=== PATIENT | female | born 1965 | race Caucasian/White ===

== ENCOUNTER 2017-04-30 08:34 | Emergency (ER) | payer MEDICAID ==
[~2017-04-30] VITALS: Ht 162.6 cm; Wt 68.3 kg
[2017-04-30 08:35] VITALS: BP 169/82
[2017-04-30] MEDS ORDERED: BUPIVACAINE/PF 0.5% INFIL ONE (12:00)
[2017-04-30] MEDS ORDERED: BUPIVACAINE 0.25% ONE (12:03)
[2017-04-30] MEDS ORDERED: KETOROLAC 30 MG/1 ML IVPush ONE (13:00)
[2017-04-30] MEDS ORDERED: SUMATRIPTAN 6MG/0.5ML SQ ONE ×2 (13:00→13:06)
[2017-04-30] MEDS ORDERED: DEXAMETHASONE 10 MG in SODIUM CHLORIDE 0.9% 50 ML IV ONE (13:00)
[2017-04-30] MEDS ORDERED: SODIUM CHLORIDE 0.9% 1,000ML IVBOLUS ONE (13:00)
[2017-04-30] MEDS ORDERED: SODIUM CHLORIDE FLUSH 10ML SYR IVF ONE (13:00)
[2017-04-30] MEDS ORDERED: DIPHENHYDRAMINE 50 MG/ML, 1ML IVPush ONE (13:00)
[2017-04-30] MEDS ORDERED: DEXAMETHASONE 4 MG/ML, 1ML IVPush ONE (13:00)
[2017-04-30] MEDS ORDERED: METOCLOPRAMIDE 5 MG/ML, 2ML IVPush ONE (13:00)
[2017-04-30] MEDS ORDERED: KETOROLAC 30 MG/1 ML ONE (13:06)
[2017-04-30] MEDS ORDERED: DIPHENHYDRAMINE 50 MG/ML, 1ML ONE (13:06)
[2017-04-30] MEDS ORDERED: METOCLOPRAMIDE 5 MG/ML, 2ML ONE (13:08)
== END 2017-04-30 14:16 | disposition home or self-care (01) ==
LOC: ED 12:52
DX: G43.001 Migraine without aura, not intractable, with status migrainosus (principal)
CPT/HCPCS: 96365; 96372; 96375; 99284; J1100; J1200; J1885; J2765; J3030; J7030

== ENCOUNTER 2017-08-13 14:24 | Emergency (ER) | payer MEDICAID ==
[~2017-08-13] VITALS: Ht 162.6 cm; Wt 66.0 kg
[2017-08-13 15:23] LABS: BASOPHILS # (AUTO) 0.02 x10^3/uL (0-0.1); BASOPHILS % (AUTO) 0 % (0-1); EOSINOPHILS # (AUTO) 0.27 x10^3/uL (0-0.4); EOSINOPHILS % (AUTO) 5 % (1-7); LYMPHOCYTES # (AUTO) 1.63 x10^3/uL (1-3.4); LYMPHOCYTES % (AUTO) 29 % (22-44); MD NO; MEAN CORPUSCULAR HEMOGLOBIN 26.4 pg (27.0-34.8); MEAN CORPUSCULAR HGB CONC 32.8 g/dL (32.4-35.8); MEAN CORPUSCULAR VOLUME 80.4 fL (80-100); MEAN PLATELET VOLUME 7.9 fL (7.4-10.4); MONOCYTES # (AUTO) 0.39 x10^3/uL (0.2-0.8); MONOCYTES % (AUTO) 7 % (2-9); NEUTROPHILS # (AUTO) 3.23 x10^3/uL (1.8-6.8); NEUTROPHILS % (AUTO) 58 % (42-75); PLATELET COUNT 339 x10^3/uL (130-400); RED BLOOD COUNT 4.72 x10^6/uL (3.82-5.3); RED CELL DISTRIBUTION WIDTH 17.3 % (9.6-15.2)
[2017-08-13] MEDS ORDERED: KETOROLAC 30 MG/1 ML IVPush ONE (15:30)
[2017-08-13] MEDS ORDERED: METOCLOPRAMIDE 5 MG/ML, 2ML IVPush ONE (15:30)
[2017-08-13] MEDS ORDERED: SODIUM CHLORIDE FLUSH 10ML SYR IVF ONE (15:30)
[2017-08-13 15:34] LABS: CHLORIDE 111 mmol/L (98-107)
[2017-08-13 15:42] LABS: ALANINE AMINOTRANSFERASE 11 U/L (12-78); ALKALINE PHOSPHATASE 55 U/L (45-117); ANION GAP 8 mmol/L (5-15); BILIRUBIN,TOTAL 0.4 mg/dL (0.2-1.0); CALCIUM 8.9 mg/dL (8.5-10.1); CREATININE 0.79 mg/dL (0.55-1.02); TOTAL PROTEIN 7.3 g/dL (6.4-8.2)
[2017-08-13] MEDS ORDERED: METOCLOPRAMIDE 5 MG/ML, 2ML ONE (15:46)
[2017-08-13] MEDS ORDERED: KETOROLAC 30 MG/1 ML ONE (15:47)
[2017-08-13 16:38] VITALS: BP 132/82
== END 2017-08-13 16:43 | disposition home or self-care (01) ==
LOC: ED 16:38
DX: G44.221 Chronic tension-type headache, intractable (principal); G43.909 Migraine, unspecified, not intractable, without status migrainosus
CPT/HCPCS: 36415; 70450; 80053; 85025; 96374; 96375; 99285; J1885; J2765

== ENCOUNTER 2017-10-02 09:14 | Emergency (ER) | payer MEDICAID ==
[~2017-10-02] VITALS: Ht 162.6 cm; Wt 65.0 kg
[2017-10-02] MEDS ORDERED: KETOROLAC 30 MG/1 ML ONE (09:44)
[2017-10-02] MEDS ORDERED: PROCHLORPERAZINE 5 MG/ML, 2ML ONE (09:44)
[2017-10-02] MEDS ORDERED: DIPHENHYDRAMINE 50 MG/ML, 1ML ONE (09:44)
[2017-10-02 09:59] LABS: BASOPHILS # (AUTO) 0.04 x10^3/uL (0-0.1); BASOPHILS % (AUTO) 1 % (0-1); EOSINOPHILS # (AUTO) 0.33 x10^3/uL (0-0.4); EOSINOPHILS % (AUTO) 6 % (1-7); LYMPHOCYTES # (AUTO) 1.51 x10^3/uL (1-3.4); LYMPHOCYTES % (AUTO) 29 % (22-44); MD NO; MEAN CORPUSCULAR HEMOGLOBIN 26.1 pg (27.0-34.8); MEAN CORPUSCULAR HGB CONC 32.6 g/dL (32.4-35.8); MEAN CORPUSCULAR VOLUME 80.1 fL (80-100); MEAN PLATELET VOLUME 7.8 fL (7.4-10.4); MONOCYTES # (AUTO) 0.43 x10^3/uL (0.2-0.8); MONOCYTES % (AUTO) 8 % (2-9); NEUTROPHILS # (AUTO) 2.92 x10^3/uL (1.8-6.8); NEUTROPHILS % (AUTO) 56 % (42-75); PLATELET COUNT 345 x10^3/uL (130-400); RED BLOOD COUNT 4.71 x10^6/uL (3.82-5.3); RED CELL DISTRIBUTION WIDTH 16.6 % (9.6-15.2)
[2017-10-02] MEDS ORDERED: DIPHENHYDRAMINE 50 MG/ML, 1ML IVPush ONE (10:00)
[2017-10-02] MEDS ORDERED: PROCHLORPERAZINE 5 MG/ML, 2ML IVPush ONE (10:00)
[2017-10-02] MEDS ORDERED: KETOROLAC 30 MG/1 ML IVPush ONE (10:00)
[2017-10-02] MEDS ORDERED: SODIUM CHLORIDE 0.9% 1,000ML IVBOLUS ONE (10:00)
[2017-10-02] MEDS ORDERED: SODIUM CHLORIDE FLUSH 10ML SYR IVF ONE (10:00)
[2017-10-02 10:10] LABS: ALBUMIN 3.7 g/dL (3.4-5.0); ANION GAP 8 mmol/L (5-15); CALCIUM 8.7 mg/dL (8.5-10.1); CHLORIDE 109 mmol/L (98-107)
[2017-10-02 10:36] VITALS: BP 144/84
== END 2017-10-02 11:29 | disposition home or self-care (01) ==
LOC: ED 09:43
DX: G43.909 Migraine, unspecified, not intractable, without status migrainosus (principal)
CPT/HCPCS: 36415; 80048; 82040; 85025; 96374; 96375; 99284; J0780; J1200; J1885; J7030

== ENCOUNTER 2017-10-08 17:45 | Emergency (ER) | payer MEDICAID ==
[~2017-10-08] VITALS: Ht 162.6 cm; Wt 63.0 kg
[2017-10-08 20:31] VITALS: BP 160/97
== END 2017-10-08 20:33 | disposition home or self-care (01) ==
LOC: ED 20:10
DX: I80.8 Phlebitis and thrombophlebitis of other sites (principal)
CPT/HCPCS: 99284

== ENCOUNTER 2018-01-06 00:01 | Emergency (ER) | payer MEDICAID ==
[~2018-01-06] VITALS: Ht 162.6 cm; Wt 62.1 kg
[2018-01-06 00:04] VITALS: BP 174/92
== END 2018-01-06 00:56 | disposition home or self-care (01) ==
LOC: ED 00:53
DX: M62.830 Muscle spasm of back (principal); I10 Essential (primary) hypertension; G43.909 Migraine, unspecified, not intractable, without status migrainosus
CPT/HCPCS: 93005; 99283

== ENCOUNTER 2018-01-07 20:01 | Emergency (ER) | payer MEDICAID ==
[~2018-01-07] VITALS: Ht 162.6 cm; Wt 60.9 kg
[2018-01-07 20:38] LABS: BASOPHILS # (AUTO) 0.04 x10^3/uL (0-0.1); BASOPHILS % (AUTO) 1 % (0-1); EOSINOPHILS # (AUTO) 0.37 x10^3/uL (0-0.4); EOSINOPHILS % (AUTO) 5 % (1-7); LYMPHOCYTES # (AUTO) 2.34 x10^3/uL (1-3.4); LYMPHOCYTES % (AUTO) 31 % (22-44); MD NO; MEAN CORPUSCULAR HGB CONC 32.6 g/dL (32.4-35.8); MEAN CORPUSCULAR VOLUME 82.8 fL (80-100); MEAN PLATELET VOLUME 7.6 fL (7.4-10.4); MONOCYTES # (AUTO) 0.57 x10^3/uL (0.2-0.8); MONOCYTES % (AUTO) 7 % (2-9); NEUTROPHILS # (AUTO) 4.34 x10^3/uL (1.8-6.8); NEUTROPHILS % (AUTO) 57 % (42-75); PLATELET COUNT 319 x10^3/uL (130-400); RED BLOOD COUNT 4.67 x10^6/uL (3.82-5.3); RED CELL DISTRIBUTION WIDTH 16.2 % (9.6-15.2)
[2018-01-07 20:49] LABS: ALANINE AMINOTRANSFERASE 20 U/L (12-78); ALBUMIN 3.9 g/dL (3.4-5.0); ANION GAP 6 mmol/L (5-15); CALCIUM 8.4 mg/dL (8.5-10.1); CHLORIDE 111 mmol/L (98-107)
[2018-01-07 20:52] LABS: ALKALINE PHOSPHATASE 57 U/L (45-117); BILIRUBIN,TOTAL 0.3 mg/dL (0.2-1.0); TOTAL PROTEIN 7.2 g/dL (6.4-8.2); TROPONIN I < 0.015 ng/mL (0.000-0.045)
[2018-01-07 23:23] VITALS: BP 180/85
== END 2018-01-07 23:43 | disposition home or self-care (01) ==
LOC: ED 22:13
DX: R07.89 Other chest pain (principal); N63.0 Unspecified lump in unspecified breast; F17.210 Nicotine dependence, cigarettes, uncomplicated
CPT/HCPCS: 36415; 71045; 76642; 80053; 84484; 85025; 93005; 99285

== ENCOUNTER 2018-01-30 22:31 | Emergency (ER) | payer MEDICAID ==
[~2018-01-30] VITALS: Ht 162.6 cm; Wt 61.3 kg
[2018-01-30 23:13] LABS: BASOPHILS # (AUTO) 0.06 x10^3/uL (0-0.1); BASOPHILS % (AUTO) 1 % (0-1); EOSINOPHILS # (AUTO) 0.39 x10^3/uL (0-0.4); EOSINOPHILS % (AUTO) 5 % (1-7); LYMPHOCYTES # (AUTO) 2.33 x10^3/uL (1-3.4); LYMPHOCYTES % (AUTO) 31 % (22-44); MD NO; MEAN CORPUSCULAR HEMOGLOBIN 27.3 pg (27.0-34.8); MEAN CORPUSCULAR VOLUME 82.6 fL (80-100); MEAN PLATELET VOLUME 7.7 fL (7.4-10.4); MONOCYTES # (AUTO) 0.67 x10^3/uL (0.2-0.8); MONOCYTES % (AUTO) 9 % (2-9); NEUTROPHILS # (AUTO) 4.17 x10^3/uL (1.8-6.8); NEUTROPHILS % (AUTO) 55 % (42-75); PLATELET COUNT 373 x10^3/uL (130-400); RED BLOOD COUNT 4.53 x10^6/uL (3.82-5.3); RED CELL DISTRIBUTION WIDTH 16.7 % (9.6-15.2)
[2018-01-30 23:21] LABS: ALBUMIN 4.1 g/dL (3.4-5.0); ANION GAP 7 mmol/L (5-15); CALCIUM 8.7 mg/dL (8.5-10.1); CHLORIDE 108 mmol/L (98-107); CREATININE 0.76 mg/dL (0.55-1.02)
[2018-01-30 23:25] LABS: TROPONIN I < 0.015 ng/mL (0.000-0.045)
[2018-01-31] MEDS ORDERED: OMNIPAQUE 350 MG/ML, 100ML BOTTLE ONE (00:19)
[2018-01-31 01:50] VITALS: BP 163/78
== END 2018-01-31 01:52 | disposition home or self-care (01) ==
LOC: ED 22:54
DX: R07.89 Other chest pain (principal); I10 Essential (primary) hypertension; F17.200 Nicotine dependence, unspecified, uncomplicated
CPT/HCPCS: 36415; 71275; 80048; 82040; 84484; 85025; 93005; 99285; Q9967

== ENCOUNTER 2018-02-10 21:55 | Emergency (ER) | payer MEDICAID ==
[~2018-02-10] VITALS: Ht 162.6 cm; Wt 59.2 kg
[2018-02-10] MEDS ORDERED: NITROGLYCERIN OINT 2%, 1GM TP ONE ×2 (22:25→22:30)
[2018-02-10] MEDS ORDERED: LABETALOL 5MG/ML, 20ML IVPush ONE (22:30)
[2018-02-10] MEDS ORDERED: SODIUM CHLORIDE FLUSH 10ML SYR IVF ONE (22:30)
[2018-02-10] MEDS ORDERED: LORazepam 2 MG/ML, 1ML IVPush ONE (22:30)
[2018-02-10 22:38] LABS: BASOPHILS # (AUTO) 0.04 x10^3/uL (0-0.1); BASOPHILS % (AUTO) 1 % (0-1); EOSINOPHILS # (AUTO) 0.32 x10^3/uL (0-0.4); EOSINOPHILS % (AUTO) 4 % (1-7); LYMPHOCYTES # (AUTO) 1.92 x10^3/uL (1-3.4); LYMPHOCYTES % (AUTO) 23 % (22-44); MD NO; MEAN CORPUSCULAR HEMOGLOBIN 27.2 pg (27.0-34.8); MEAN CORPUSCULAR VOLUME 82.4 fL (80-100); MEAN PLATELET VOLUME 7.4 fL (7.4-10.4); MONOCYTES # (AUTO) 0.67 x10^3/uL (0.2-0.8); MONOCYTES % (AUTO) 8 % (2-9); NEUTROPHILS % (AUTO) 66 % (42-75); PLATELET COUNT 371 x10^3/uL (130-400); RED BLOOD COUNT 4.69 x10^6/uL (3.82-5.3); RED CELL DISTRIBUTION WIDTH 16.9 % (9.6-15.2)
[2018-02-10] MEDS ORDERED: LORazepam 2 MG/ML, 1ML ONE (22:39)
[2018-02-10 22:50] LABS: ALANINE AMINOTRANSFERASE 22 U/L (12-78); ANION GAP 9 mmol/L (5-15); CALCIUM 8.7 mg/dL (8.5-10.1); CHLORIDE 107 mmol/L (98-107); CREATININE 0.84 mg/dL (0.55-1.02); PROTHROMBIN TIME 10.6 Seconds (9.6-11.5)
[2018-02-10 22:55] LABS: ALKALINE PHOSPHATASE 58 U/L (45-117); BILIRUBIN,TOTAL 0.3 mg/dL (0.2-1.0); TOTAL PROTEIN 7.5 g/dL (6.4-8.2); TROPONIN I < 0.015 ng/mL (0.000-0.045)
[2018-02-10] MEDS ORDERED: OMNIPAQUE 350 MG/ML, 100ML BOTTLE ONE (23:11)
[2018-02-10 23:58] VITALS: BP 115/76
== END 2018-02-11 01:11 | disposition home or self-care (01) ==
LOC: ED 22:11
DX: R07.89 Other chest pain (principal); I10 Essential (primary) hypertension; F17.200 Nicotine dependence, unspecified, uncomplicated
CPT/HCPCS: 36415; 71275; 80053; 83880; 84484; 85025; 85610; 85730; 93005; 96374; 99284; J2060; Q9967

== ENCOUNTER 2018-02-23 09:02 | Day surgery (SDC) | payer MEDICAID ==
[~2018-02-23] VITALS: Ht 162.6 cm; Wt 60.0 kg
[~2018-02-23 09:02] MED LIST: BUPIVACAINE/PF-EPI 0.5% 1:200K ONE; HEPARIN 1,000 UNITS/ML, 10ML ONE
[2018-02-23] MEDS ORDERED: LACTATED RINGERS 1,000 ML IV SCH (09:29)
[2018-02-23] MEDS ORDERED: LIDOCAINE-MPF 1%, 2ML INFIL ONE (09:30)
[2018-02-23] MEDS ORDERED: PLEASE ENTER HEIGHT AND WEIGHT MC SCH (10:00)
[2018-02-23 10:07] VITALS: BP 159/93
[2018-02-23 10:29] LABS: HCG UR SG 1.012 (1.003-1.030)
[2018-02-23] MEDS ORDERED: FENTANYL PF 100 MCG/2ML ONE ×2 (10:56→12:22)
[2018-02-23] MEDS ORDERED: MIDAZOLAM 1 MG/ML, 2ML ONE (10:56)
[2018-02-23] MEDS ORDERED: DEXAMETHASONE 4 MG/ML, 1ML ONE (11:23)
[2018-02-23] MEDS ORDERED: CEFAZOLIN 1,000 MG ONE (11:23)
[2018-02-23] MEDS ORDERED: PROPOFOL 10 MG/ML, 20ML ONE (11:23)
[2018-02-23] MEDS ORDERED: ONDANSETRON 2MG/ML, 2ML ONE (11:23)
[2018-02-23] MEDS ORDERED: MEPERIDINE/PF 50 MG/ML ONE (11:57)
[2018-02-23] MEDS ORDERED: PROMETHAZINE 25 MG/ML, 1ML IV PRN (12:00)
[2018-02-23] MEDS ORDERED: ACETAMINOPHEN 325 MG TABLET PO PRN (12:00)
[2018-02-23] MEDS ORDERED: FENTANYL PF 100 MCG/2ML IV PRN (12:00)
[2018-02-23] MEDS ORDERED: LABETALOL 5MG/ML, 20ML IV PRN (12:00)
[2018-02-23] MEDS ORDERED: OXYcodone 5 MG/5 ML ORAL.SOL UDC PO PRN (12:00)
[2018-02-23] MEDS ORDERED: MEPERIDINE/PF 25MG/0.5ML IVPush PRN (12:00)
[2018-02-23] MEDS ORDERED: HYDROmorphone 2 MG/ML, 1ML IVPush PRN (12:00)
[2018-02-23] MEDS ORDERED: ALBUTEROL SULFATE 2.5 MG/3 ML NPPB PRN (12:00)
[2018-02-23] MEDS ORDERED: hydrALAzine 20 MG/ML, 1ML IV PRN (12:00)
[2018-02-23] MEDS ORDERED: OXYcodone 5 MG/5 ML ORAL.SOL UDC ONE (12:22)
== END 2018-02-23 14:15 | disposition home or self-care (01) ==
LOC: OUT 09:02
PROVIDERS: ATTEND Surgery
DX: Z45.2 Encounter for adjustment and management of vascular access device (principal); C50.912 Malignant neoplasm of unspecified site of left female breast; I10 Essential (primary) hypertension; F17.210 Nicotine dependence, cigarettes, uncomplicated; G43.909 Migraine, unspecified, not intractable, without status migrainosus; Z98.890 Other specified postprocedural states
CPT/HCPCS: 36561; 71045; 77001; 81025; C1788; J0690; J1100; J1644; J2175; J2250; J2405; J2704; J3010; J7120; 76000

== ENCOUNTER 2018-03-16 14:48 | Emergency (ER) | payer MEDICAID ==
[~2018-03-16] VITALS: Ht 162.6 cm; Wt 60.3 kg
[2018-03-16 16:04] LABS: BASOPHILS # (AUTO) 0.07 x10^3/uL (0-0.1); BASOPHILS % (AUTO) 1 % (0-1); EOSINOPHILS % (AUTO) 3 % (1-7); LYMPHOCYTES # (AUTO) 1.53 x10^3/uL (1-3.4); LYMPHOCYTES % (AUTO) 20 % (22-44); MD NO; MEAN CORPUSCULAR HEMOGLOBIN 27.2 pg (27.0-34.8); MEAN CORPUSCULAR HGB CONC 32.1 g/dL (32.4-35.8); MEAN CORPUSCULAR VOLUME 84.5 fL (80-100); MEAN PLATELET VOLUME 7.4 fL (7.4-10.4); MONOCYTES # (AUTO) 0.56 x10^3/uL (0.2-0.8); MONOCYTES % (AUTO) 7 % (2-9); NEUTROPHILS # (AUTO) 5.49 x10^3/uL (1.8-6.8); NEUTROPHILS % (AUTO) 70 % (42-75); PLATELET COUNT 325 x10^3/uL (130-400); RED BLOOD COUNT 4.53 x10^6/uL (3.82-5.3); RED CELL DISTRIBUTION WIDTH 16.3 % (9.6-15.2)
[2018-03-16 16:12] LABS: ALBUMIN 3.9 g/dL (3.4-5.0); ANION GAP 5 mmol/L (5-15); CALCIUM 8.6 mg/dL (8.5-10.1); CHLORIDE 109 mmol/L (98-107)
[2018-03-16 16:16] LABS: ALANINE AMINOTRANSFERASE 25 U/L (12-78); ALKALINE PHOSPHATASE 55 U/L (45-117); BILIRUBIN,TOTAL 0.5 mg/dL (0.2-1.0); CREATININE 0.96 mg/dL (0.55-1.02); TOTAL PROTEIN 7.3 g/dL (6.4-8.2)
[2018-03-16] MEDS ORDERED: MECLIZINE CHEWABLE 25 MG TAB ONE (16:19)
[2018-03-16] MEDS ORDERED: MECLIZINE CHEWABLE 25 MG TAB PO ONE (16:30)
[2018-03-16 16:37] VITALS: BP 135/89
[2018-03-16] MEDS ORDERED: HYDR-3237 PO (16:40)
== END 2018-03-16 18:00 | disposition home or self-care (01) ==
LOC: ED 16:18
DX: R42 Dizziness and giddiness (principal); R51 Headache; I10 Essential (primary) hypertension; F17.200 Nicotine dependence, unspecified, uncomplicated; Z85.3 Personal history of malignant neoplasm of breast
CPT/HCPCS: 36415; 70450; 80053; 85025; 99284

== ENCOUNTER 2018-03-20 20:05 | Emergency (ER) | payer MEDICAID ==
[~2018-03-20] VITALS: Ht 162.6 cm; Wt 60.1 kg
[~2018-03-20 20:05] MED LIST changes: -BUPIVACAINE/PF-EPI 0.5% 1:200K ONE; -HEPARIN 1,000 UNITS/ML, 10ML ONE; +HYDR-3237 PO
[2018-03-20] MEDS ORDERED: LORazepam 1MG TABLET PO ONE (20:30)
[2018-03-20] MEDS ORDERED: LORazepam 1MG TABLET ONE (20:41)
--- NOTE | 2018-03-20 20:45 | NUR ---
Pt presents for sore throat that is causing her anxiety. Pt states ST x 3 days, axiety increasing today. Pt states hx of stragulation and this is bringing that back up.
[2018-03-20 22:24] VITALS: BP 166/82
== END 2018-03-20 22:27 | disposition home or self-care (01) ==
LOC: ED 22:21
DX: F41.9 Anxiety disorder, unspecified (principal); G43.909 Migraine, unspecified, not intractable, without status migrainosus; Z85.3 Personal history of malignant neoplasm of breast
CPT/HCPCS: 93005; 99284

== ENCOUNTER 2018-04-19 19:03 | Emergency (ER) | payer MEDICAID ==
[~2018-04-19] VITALS: Ht 162.6 cm; Wt 60.4 kg
--- NOTE | 2018-04-19 19:14 | NUR ---
Luther chowdary in [facility] - 04/19/18 at 1917 by NINI nakul lab trop 0.180 erp aware
[2018-04-19] MEDS ORDERED: PROC25SU25 PR (19:25)
--- NOTE | 2018-04-19 19:26 | NUR ---
pt presented with c/o " feels like my heart racing" and nausea that started since chemo 1 week ago, h/x left breast ca. monitors applied, siderails up x2, call light within reach, family at bedside. awaiting erp for eval and orders
[2018-04-19 19:55] LABS: MEAN CORPUSCULAR HEMOGLOBIN 28.5 pg (27.0-34.8); MEAN CORPUSCULAR HGB CONC 33.4 g/dL (32.4-35.8); MEAN CORPUSCULAR VOLUME 85.4 fL (80-100); MEAN PLATELET VOLUME 7.9 fL (7.4-10.4); PLATELET COUNT 168 x10^3/uL (130-400); RED BLOOD COUNT 3.71 x10^6/uL (3.82-5.3); RED CELL DISTRIBUTION WIDTH 16.3 % (9.6-15.2)
[2018-04-19] MEDS ORDERED: SODIUM CHLORIDE FLUSH 10ML SYR IVF ONE (20:00)
[2018-04-19 20:07] LABS: ALANINE AMINOTRANSFERASE 41 U/L (12-78); ALBUMIN 3.5 g/dL (3.4-5.0); ANION GAP 5 mmol/L (5-15); CALCIUM 8.5 mg/dL (8.5-10.1); CHLORIDE 109 mmol/L (98-107)
[2018-04-19 20:10] LABS: MD YES
[2018-04-19 20:12] LABS: ALKALINE PHOSPHATASE 87 U/L (45-117); BILIRUBIN,TOTAL 0.3 mg/dL (0.2-1.0); CREATININE 0.73 mg/dL (0.55-1.02); T4 (THYROXINE) 9.9 mcg/dL (4.8-13.9); TOTAL PROTEIN 6.5 g/dL (6.4-8.2); TROPONIN I < 0.015 ng/mL (0.000-0.045)
[2018-04-19 20:13] LABS: BAND#(MANUAL) 0.88 x10^3/uL; BANDS%(MANUAL) 14 % (0-7); BASOS#(MANUAL) 0.13 x10^3/uL (0-0.1); BASOS% (MANUAL) 2 % (0-1); LYMPHS% (MANUAL) 19 % (22-44); MONOS#(MANUAL) 0.38 x10^3/uL (0.3-2.7); MONOS% (MANUAL) 6 % (2-9); SEG#(MANUAL) 3.72 x10^3/uL (1.8-6.8); SEGS% (MANUAL) 59 % (42-75)
[2018-04-19 20:17] LABS: THYROID STIMULATING HORMONE 0.859 mIU/L (0.358-3.740)
--- NOTE | 2018-04-19 20:20 | NUR ---
pt resting calmy, denies needs, call light within reach. awaiting lab results
[2018-04-19 20:22] LABS: <PLATELET ESTIMATE> ADEQUATE; <PLT MORPHOLOGY> NORMAL PLT MORPH; ANISOCYTOSIS 1+; TOXIC GRAN 1+
[2018-04-19 20:23] LABS: OVALOCYTES 1+
[2018-04-19] MEDS ORDERED: SODIUM CHLORIDE 0.9% 1,000ML IVBOLUS ONE (21:00)
[2018-04-19 21:53] VITALS: BP 141/78
--- NOTE | 2018-04-19 21:54 | NUR ---
pt resting on gurney, iv fluids infusing, denies needs, call light within reach
== END 2018-04-19 22:39 | disposition home or self-care (01) ==
LOC: ED 19:21
DX: E86.0 Dehydration (principal); G43.909 Migraine, unspecified, not intractable, without status migrainosus; I10 Essential (primary) hypertension; F17.200 Nicotine dependence, unspecified, uncomplicated; Z85.3 Personal history of malignant neoplasm of breast; Z51.11 Encounter for antineoplastic chemotherapy
CPT/HCPCS: 36415; 71045; 80053; 84436; 84443; 84484; 85025; 93005; 96360; 99284; J7030

== ENCOUNTER 2018-05-13 19:33 | Emergency (ER) | payer MEDICAID ==
[~2018-05-13] VITALS: Ht 162.6 cm; Wt 62.6 kg
[~2018-05-13 19:33] MED LIST changes: +PROC25SU25 PR
[2018-05-13] MEDS ORDERED: METOCLOPRAMIDE 5 MG/ML, 2ML IVPush ONE (20:00)
[2018-05-13] MEDS ORDERED: DIPHENHYDRAMINE 50 MG/ML, 1ML IVPush ONE (20:00)
[2018-05-13] MEDS ORDERED: SODIUM CHLORIDE FLUSH 10ML SYR IVF ONE (20:00)
--- NOTE | 2018-05-13 20:18 | NUR ---
task rn: pt port accessed per policy. vss. [place].
[2018-05-13] MEDS ORDERED: DIPHENHYDRAMINE 50 MG/ML, 1ML ONE (20:19)
[2018-05-13] MEDS ORDERED: METOCLOPRAMIDE 5 MG/ML, 2ML ONE (20:19)
[2018-05-13 20:25] LABS: BASOPHILS # (AUTO) 0.13 x10^3/uL (0-0.1); BASOPHILS % (AUTO) 1 % (0-1); EOSINOPHILS # (AUTO) 0.01 x10^3/uL (0-0.4); EOSINOPHILS % (AUTO) 0 % (1-7); LYMPHOCYTES # (AUTO) 1.44 x10^3/uL (1-3.4); LYMPHOCYTES % (AUTO) 13 % (22-44); MD NO; MEAN CORPUSCULAR HGB CONC 33.1 g/dL (32.4-35.8); MEAN CORPUSCULAR VOLUME 87.5 fL (80-100); MEAN PLATELET VOLUME 7.7 fL (7.4-10.4); MONOCYTES # (AUTO) 0.93 x10^3/uL (0.2-0.8); MONOCYTES % (AUTO) 8 % (2-9); NEUTROPHILS # (AUTO) 8.83 x10^3/uL (1.8-6.8); NEUTROPHILS % (AUTO) 78 % (42-75); PLATELET COUNT 204 x10^3/uL (130-400); RED BLOOD COUNT 3.74 x10^6/uL (3.82-5.3); RED CELL DISTRIBUTION WIDTH 17.6 % (9.6-15.2)
[2018-05-13 20:33] LABS: ANION GAP 6 mmol/L (5-15); CALCIUM 8.3 mg/dL (8.5-10.1); CHLORIDE 111 mmol/L (98-107); CREATININE 0.66 mg/dL (0.55-1.02)
--- NOTE | 2018-05-13 20:44 | NUR ---
PT MEDICATED PER MAR FOR N/V/D. VSS. CALL LIGHT IN REACH.
[2018-05-13] MEDS ORDERED: SODIUM CHLORIDE 0.9% 1,000ML IVBOLUS ONE (21:30)
--- NOTE | 2018-05-13 21:31 | NUR ---
PT STATES RELIEF AFTER MEDS. IV FLUIDS INFUSING. VSS. CALL LIGHT IN REACH. AWAITING FURTHER DISPO.
[2018-05-13 21:32] VITALS: BP 131/89
--- NOTE | 2018-05-13 21:50 | NUR ---
REPORT TO KAYY BERMUDEZ.
== END 2018-05-13 22:33 | disposition home or self-care (01) ==
LOC: ED 22:24
DX: R11.2 Nausea with vomiting, unspecified (principal); R19.7 Diarrhea, unspecified
CPT/HCPCS: 36415; 80048; 83690; 85025; 96374; 96375; 99283; J1200; J2765; J7030

== ENCOUNTER 2018-06-03 20:51 | Emergency (ER) | payer MEDICAID ==
[~2018-06-03] VITALS: Ht 162.6 cm; Wt 63.0 kg
--- NOTE | 2018-06-03 21:18 | NUR ---
PT RESTING ON GURNEY ARRIVED WITH C/O CHEST CONGESTION AND PRODUCTIVE COUGH X 2 DAYS. MONITOR APPLIED, SIDERAILS UP X2, CALL LIGHT WITHIN REACH. AWAITING ERP FOR EVAL AND ORDERS
[2018-06-03] MEDS ORDERED: ACETAMINOPHEN 325 MG TABLET PO ONE (22:00)
[2018-06-03] MEDS ORDERED: IBUPROFEN 200 MG TABLET PO ONE (22:00)
[2018-06-03 22:03] LABS: RAPID INFLUENZA A Negative (Negative); RAPID INFLUENZA B Negative (Negative)
[2018-06-03] MEDS ORDERED: ACETAMINOPHEN 325 MG TABLET ONE (22:03)
[2018-06-03] MEDS ORDERED: IBUPROFEN 200 MG TABLET ONE (22:04)
[2018-06-03 22:07] LABS: MEAN CORPUSCULAR HEMOGLOBIN 30.2 pg (27.0-34.8); MEAN CORPUSCULAR HGB CONC 33.5 g/dL (32.4-35.8); MEAN CORPUSCULAR VOLUME 90.2 fL (80-100); MEAN PLATELET VOLUME 7.5 fL (7.4-10.4); PLATELET COUNT 190 x10^3/uL (130-400); RED BLOOD COUNT 3.22 x10^6/uL (3.82-5.3)
--- NOTE | 2018-06-03 22:07 | NUR ---
PT MEDICATED PER MAR, CALL LIGHT WITHIN REACH. AWAITING LAB RESULTS
[2018-06-03 22:19] LABS: ALBUMIN 3.3 g/dL (3.4-5.0); ANION GAP 4 mmol/L (5-15); CALCIUM 8.3 mg/dL (8.5-10.1); CHLORIDE 109 mmol/L (98-107)
[2018-06-03 22:20] LABS: CREATININE 0.84 mg/dL (0.55-1.02)
[2018-06-03 22:31] LABS: MD YES
[2018-06-03 22:35] LABS: <PLATELET ESTIMATE> ADEQUATE; <PLT MORPHOLOGY> NORMAL PLT MORPH; <RBC MORPHOLOGY> NORMAL; BAND#(MANUAL) 1.71 x10^3/uL; BANDS%(MANUAL) 14 % (0-7); LYMPH#(MANUAL) 1.34 x10^3/uL (1-3.4); LYMPHS% (MANUAL) 11 % (22-44); METAMYELOCYTES# (MANUAL) 0.73 x10^3/uL (0-0); METAMYELOCYTES% (MANUAL) 6 % (0-1); MONOS#(MANUAL) 0.85 x10^3/uL (0.3-2.7); MONOS% (MANUAL) 7 % (2-9); NRBC % (MANUAL) 2 % (0-1); SEG#(MANUAL) 7.56 x10^3/uL (1.8-6.8); SEGS% (MANUAL) 62 % (42-75)
[2018-06-03 23:10] VITALS: BP 128/74
--- NOTE | 2018-06-03 23:10 | NUR ---
PT RESTING ON GURNEY, DENIES NEEDS, MONITORS IN PLACE, CALL LIGHT WITHIN REACH. CHART UP FOR RECHECK
== END 2018-06-03 23:36 | disposition home or self-care (01) ==
LOC: ED 22:20
DX: J15.9 Unspecified bacterial pneumonia (principal); J02.9 Acute pharyngitis, unspecified; B97.89 Other viral agents as the cause of diseases classified elsewhere; G43.909 Migraine, unspecified, not intractable, without status migrainosus; F17.210 Nicotine dependence, cigarettes, uncomplicated
CPT/HCPCS: 36415; 71046; 80048; 82040; 85025; 87400; 99284

== ENCOUNTER → 2018-07-23 | Outpatient (CLI) | payer MEDICAID ==
[~2018-07-23] MED LIST changes: +GADOBUTROL 7.5 MMOL/7.5 ML VIAL ONE
== END | disposition home or self-care (01) ==
LOC: CFH 12:25
PROVIDERS: ATTEND Internal Medicine Hematology & Oncology
DX: C50.812 Malignant neoplasm of overlapping sites of left female breast (principal)
CPT/HCPCS: A9585; C8908

== ENCOUNTER → 2018-07-31 | Outpatient (CLI) | payer MEDICAID ==
[~2018-07-31] MED LIST changes: -GADOBUTROL 7.5 MMOL/7.5 ML VIAL ONE; +LIDOCAINE 1%, 20ML ONE; +LIDOCAINE 1%-EPI 1:100K, 20ML ONE; +SODIUM BICARBONATE 4.0%, 5ML ONE
== END | disposition home or self-care (01) ==
LOC: CFH 07:05
PROVIDERS: ATTEND Surgery
DX: C50.912 Malignant neoplasm of unspecified site of left female breast (principal)
CPT/HCPCS: 19285; 77065; J3490

== ENCOUNTER 2018-09-06 16:03 | Emergency (ER) | payer MEDICAID ==
[~2018-09-06] VITALS: Ht 162.6 cm; Wt 62.0 kg
[~2018-09-06 16:03] MED LIST changes: -LIDOCAINE 1%, 20ML ONE; -LIDOCAINE 1%-EPI 1:100K, 20ML ONE; -SODIUM BICARBONATE 4.0%, 5ML ONE
[2018-09-06] MEDS ORDERED: KETOROLAC 30 MG/1 ML IVPush ONE (17:30)
[2018-09-06] MEDS ORDERED: SODIUM CHLORIDE 0.9% 1,000ML IVBOLUS ONE (17:30)
[2018-09-06] MEDS ORDERED: PROCHLORPERAZINE 5 MG/ML, 2ML IVPush ONE (17:30)
[2018-09-06] MEDS ORDERED: ACETAMINOPHEN 500 MG TABLET PO ONE (17:30)
[2018-09-06] MEDS ORDERED: PROCHLORPERAZINE 5 MG/ML, 2ML ONE (17:52)
[2018-09-06] MEDS ORDERED: KETOROLAC 30 MG/1 ML ONE (17:52)
[2018-09-06] MEDS ORDERED: ACETAMINOPHEN 500 MG TABLET ONE (17:52)
[2018-09-06 18:06] VITALS: BP 143/92
== END 2018-09-06 19:23 | disposition home or self-care (01) ==
LOC: ED 17:36
DX: G43.109 Migraine with aura, not intractable, without status migrainosus (principal); F17.210 Nicotine dependence, cigarettes, uncomplicated; I10 Essential (primary) hypertension; R11.2 Nausea with vomiting, unspecified; Z85.3 Personal history of malignant neoplasm of breast
CPT/HCPCS: 70450; 93005; 96361; 96374; 96375; 99284; J0780; J1885; J7030

== ENCOUNTER 2018-11-08 19:09 | Emergency (ER) | payer MEDICAID ==
[~2018-11-08] VITALS: Ht 162.6 cm; Wt 61.4 kg
[2018-11-08 20:03] VITALS: BP 138/74
== END 2018-11-08 20:04 | disposition home or self-care (01) ==
LOC: ED 19:20
DX: G43.909 Migraine, unspecified, not intractable, without status migrainosus (principal); F17.210 Nicotine dependence, cigarettes, uncomplicated; I10 Essential (primary) hypertension; M54.2 Cervicalgia; Z85.3 Personal history of malignant neoplasm of breast
CPT/HCPCS: 96372; 99283; J0780; J1885

== ENCOUNTER 2019-01-25 15:31 | Emergency (ER) | payer MEDICAID ==
[~2019-01-25] VITALS: Ht 162.6 cm; Wt 61.5 kg
[2019-01-25 16:23] VITALS: BP 179/97
[2019-01-25 16:59] LABS: BASOPHILS # (AUTO) 0.02 x10^3/uL (0-0.1); BASOPHILS % (AUTO) 1 % (0-1); EOSINOPHILS # (AUTO) 0.19 x10^3/uL (0-0.4); EOSINOPHILS % (AUTO) 4 % (1-7); LYMPHOCYTES # (AUTO) 0.87 x10^3/uL (1-3.4); LYMPHOCYTES % (AUTO) 17 % (22-44); MD NO; MEAN CORPUSCULAR HEMOGLOBIN 31.4 pg (27.0-34.8); MEAN CORPUSCULAR HGB CONC 32.8 g/dL (32.4-35.8); MEAN CORPUSCULAR VOLUME 95.7 fL (80-100); MEAN PLATELET VOLUME 6.3 fL (7.4-10.4); MONOCYTES # (AUTO) 0.43 x10^3/uL (0.2-0.8); MONOCYTES % (AUTO) 9 % (2-9); NEUTROPHILS # (AUTO) 3.57 x10^3/uL (1.8-6.8); NEUTROPHILS % (AUTO) 70 % (42-75); PLATELET COUNT 221 x10^3/uL (130-400); RED BLOOD COUNT 4.17 x10^6/uL (3.82-5.3); RED CELL DISTRIBUTION WIDTH 14.3 % (9.6-15.2)
[2019-01-25 17:08] LABS: ALBUMIN 3.8 g/dL (3.4-5.0); ANION GAP 3 mmol/L (5-15); CALCIUM 8.7 mg/dL (8.5-10.1); CHLORIDE 113 mmol/L (98-107); CREATININE 0.81 mg/dL (0.55-1.02)
--- NOTE | 2019-01-25 17:41 | NUR ---
CLEAN CATCH URINE COLLECTED-SENT TO LAB
[2019-01-25 18:02] LABS: MICROSCOPIC AUTO
[2019-01-25 18:03] LABS: CULTURE INDICATED? YES
--- NOTE | 2019-01-25 18:17 | NUR ---
PROVIDER REMINDED THAT PELVIC SET UP PATIENT UPDATED ON ESTIMATED POC
--- NOTE | 2019-01-25 18:30 | NUR ---
Pelvic performed by ER /Chante Ly RN swab obtained-sent to lab for testing
[2019-01-25 18:54] LABS: CLUE CELLS NONE SEEN (NONE SEEN); WET PREP WBCS FEW (FEW)
[2019-01-25] MEDS ORDERED: KETOROLAC 30 MG/1 ML IM ONE (19:30)
== END 2019-01-25 19:38 | disposition home or self-care (01) ==
LOC: ED 19:32
DX: N30.00 Acute cystitis without hematuria (principal); F17.200 Nicotine dependence, unspecified, uncomplicated; I10 Essential (primary) hypertension; Z85.3 Personal history of malignant neoplasm of breast
CPT/HCPCS: 36415; 80048; 81001; 82040; 85025; 87077; 87086; 87210; 87808; 96372; 99283; J1885; 87186

== ENCOUNTER 2019-05-20 06:41 | Emergency (ER) | payer MEDICAID ==
[~2019-05-20] VITALS: Ht 162.6 cm; Wt 60.5 kg
[2019-05-20] MEDS ORDERED: BENZONATATE 100 MG CAPSULE PO ONE (07:00)
--- NOTE | 2019-05-20 07:03 | NUR ---
patient arrives to er with a cough that began yesterday. she also reports some sob, no s/s distress at this time.
--- NOTE | 2019-05-20 07:08 | NUR ---
patient has hx of breast ca. she has a port and stopped chemo 5 months ago and is in remission. patient in bed, rails up, monitor.
[2019-05-20] MEDS ORDERED: BENZONATATE 100 MG CAPSULE ONE ×2 (07:10→07:14)
--- NOTE | 2019-05-20 07:22 | NUR ---
patient returned from xray, in bed on monitor.
[2019-05-20 07:40] LABS: RAPID INFLUENZA A Negative (Negative); RAPID INFLUENZA B Negative (Negative)
[2019-05-20 08:10] VITALS: BP 151/78
--- NOTE | 2019-05-20 08:11 | NUR ---
REVIEWED DISCHARGE, PATIENT SHOWS UNDERSTANDING.
== END 2019-05-20 08:34 | disposition home or self-care (01) ==
LOC: ED 08:20
DX: J00 Acute nasopharyngitis [common cold] (principal); R00.0 Tachycardia, unspecified; I10 Essential (primary) hypertension; F17.200 Nicotine dependence, unspecified, uncomplicated
CPT/HCPCS: 71046; 87400; 93005; 99285

== ENCOUNTER 2019-05-29 21:38 | Emergency (ER) | payer MEDICAID ==
[~2019-05-29] VITALS: Ht 162.6 cm; Wt 60.4 kg
[2019-05-29 21:45] VITALS: BP 155/98
--- NOTE | 2019-05-29 22:29 | NUR ---
PT CAME IN CO OF FEELING SOB AND WHEEZING WITH A COUGH. "AARON BEEN FIGHTING THIS COLD FOR A WEEK AND I THINK I MAY NEED A BREATHING TREATMENT." SMOKES CIGARETTES. MD IS BEDSIDE.
[2019-05-29] MEDS ORDERED: ALBUTEROL SULFATE 2.5 MG/3 ML ONE (22:52)
[2019-05-29] MEDS ORDERED: ALBUTEROL SULFATE 2.5 MG/3 ML NPPB ONE (23:00)
== END 2019-05-30 00:10 | disposition home or self-care (01) ==
LOC: ED 23:35
DX: R05 Cough (principal); I10 Essential (primary) hypertension; F17.200 Nicotine dependence, unspecified, uncomplicated; Z85.3 Personal history of malignant neoplasm of breast
CPT/HCPCS: 71046; 93005; 94640; 99284; J7613

== ENCOUNTER 2019-06-01 19:50 | Emergency (ER) | payer MEDICAID ==
[~2019-06-01] VITALS: Ht 162.6 cm; Wt 61.6 kg
[2019-06-01 20:28] VITALS: BP 152/80
[2019-06-01] MEDS ORDERED: KETOROLAC 30 MG/1 ML IVPush ONE (20:30)
[2019-06-01] MEDS ORDERED: SODIUM CHLORIDE FLUSH 10ML SYR IVF ONE (20:30)
[2019-06-01] MEDS ORDERED: DIPHENHYDRAMINE 50 MG/ML, 1ML IVPush ONE (20:30)
[2019-06-01] MEDS ORDERED: PROCHLORPERAZINE 5 MG/ML, 2ML IVPush ONE (20:30)
[2019-06-01] MEDS ORDERED: DIPHENHYDRAMINE 50 MG/ML, 1ML ONE (20:33)
[2019-06-01] MEDS ORDERED: KETOROLAC 30 MG/1 ML ONE (20:33)
[2019-06-01] MEDS ORDERED: PROCHLORPERAZINE 5 MG/ML, 2ML ONE (20:33)
[2019-06-01 21:11] LABS: BASOPHILS # (AUTO) 0.04 x10^3/uL (0-0.1); BASOPHILS % (AUTO) 1 % (0-1); EOSINOPHILS # (AUTO) 0.11 x10^3/uL (0-0.4); EOSINOPHILS % (AUTO) 1 % (1-7); LYMPHOCYTES # (AUTO) 1.28 x10^3/uL (1-3.4); LYMPHOCYTES % (AUTO) 15 % (22-44); MD NO; MEAN CORPUSCULAR HEMOGLOBIN 30.9 pg (27.0-34.8); MEAN CORPUSCULAR VOLUME 93.6 fL (80-100); MEAN PLATELET VOLUME 6.8 fL (7.4-10.4); MONOCYTES # (AUTO) 0.67 x10^3/uL (0.2-0.8); MONOCYTES % (AUTO) 8 % (2-9); NEUTROPHILS # (AUTO) 6.62 x10^3/uL (1.8-6.8); NEUTROPHILS % (AUTO) 76 % (42-75); PLATELET COUNT 245 x10^3/uL (130-400); RED BLOOD COUNT 4.08 x10^6/uL (3.82-5.3); RED CELL DISTRIBUTION WIDTH 13.9 % (9.6-15.2)
[2019-06-01 21:16] LABS: ALBUMIN 3.7 g/dL (3.4-5.0); ANION GAP 6 mmol/L (5-15); CALCIUM 8.9 mg/dL (8.5-10.1); CHLORIDE 108 mmol/L (98-107); CREATININE 0.77 mg/dL (0.55-1.02)
--- NOTE | 2019-06-01 21:56 | NUR ---
Patient given discharge instructions and they have confirmed that they understand the instructions. Patient ambulatory with steady gait.
== END 2019-06-01 21:57 | disposition home or self-care (01) ==
LOC: ED 21:43
DX: J20.9 Acute bronchitis, unspecified (principal); G43.009 Migraine without aura, not intractable, without status migrainosus; M54.2 Cervicalgia; I10 Essential (primary) hypertension; Z85.3 Personal history of malignant neoplasm of breast; F17.200 Nicotine dependence, unspecified, uncomplicated
CPT/HCPCS: 36415; 80048; 82040; 85025; 96374; 96375; 99284; J0780; J1200; J1885

== ENCOUNTER 2019-07-02 18:54 | Emergency (ER) | payer MEDICAID ==
[~2019-07-02] VITALS: Ht 162.6 cm; Wt 61.0 kg
--- NOTE | 2019-07-02 19:32 | NUR ---
THIS IS A 54 YO FEMALE WHO PRESENTS TO THE ER C/O DIFFICULTY SWALLOWING FOR THE LAST 2-3 WEEKS. PT STATES "I HAVE TO CRUSH MY PILLS UP AND I FEEL LIKE STUFF IS GETTING STUCK". PT REPORTS ITCHING ON BACK. NO RASH NOTED. PT C/O SLIGHT SOB STATING "I FEEL LIKE IT'S MY ANXIETY. MY MOM SAID I MIGHT HAVE THROAT CANCER AND I'M A SMOKER AND JUST FINISHED BATTLING BREAST CANCER". PT AO X 4. SKIN PWD. RESP EVEN AND UNLABORED. PT ON CONT BP, CARDIAC AND O2 MONITORS. KEL HEIN AT BEDSIDE FOR EVAL. CALL LIGHT WITHIN REACH. WILL CONT TO MONITOR PT.
[2019-07-02] MEDS ORDERED: DIPHENHYDRAMINE 25 MG CAPSULE ONE (19:46)
[2019-07-02] MEDS ORDERED: SODIUM CHLORIDE FLUSH 10ML SYR IVF ONE (20:00)
[2019-07-02] MEDS ORDERED: DIPHENHYDRAMINE 25 MG CAPSULE PO ONE (20:00)
[2019-07-02 20:20] LABS: BASOPHILS # (AUTO) 0.03 x10^3/uL (0-0.1); BASOPHILS % (AUTO) 1 % (0-1); EOSINOPHILS # (AUTO) 0.26 x10^3/uL (0-0.4); EOSINOPHILS % (AUTO) 6 % (1-7); LYMPHOCYTES # (AUTO) 1.97 x10^3/uL (1-3.4); LYMPHOCYTES % (AUTO) 46 % (22-44); MD NO; MEAN CORPUSCULAR HEMOGLOBIN 30.5 pg (27.0-34.8); MEAN CORPUSCULAR HGB CONC 33.2 g/dL (32.4-35.8); MEAN CORPUSCULAR VOLUME 91.7 fL (80-100); MEAN PLATELET VOLUME 6.9 fL (7.4-10.4); MONOCYTES # (AUTO) 0.37 x10^3/uL (0.2-0.8); MONOCYTES % (AUTO) 9 % (2-9); NEUTROPHILS # (AUTO) 1.61 x10^3/uL (1.8-6.8); NEUTROPHILS % (AUTO) 38 % (42-75); PLATELET COUNT 235 x10^3/uL (130-400); RED BLOOD COUNT 4.16 x10^6/uL (3.82-5.3); RED CELL DISTRIBUTION WIDTH 14.5 % (9.6-15.2)
[2019-07-02 20:25] LABS: ALANINE AMINOTRANSFERASE 13 U/L (12-78); ALBUMIN 3.8 g/dL (3.4-5.0); ANION GAP 6 mmol/L (5-15); CHLORIDE 110 mmol/L (98-107); CREATININE 0.68 mg/dL (0.55-1.02)
[2019-07-02 20:30] LABS: ALKALINE PHOSPHATASE 71 U/L (45-117); BILIRUBIN,TOTAL 0.4 mg/dL (0.2-1.0); TOTAL PROTEIN 7.2 g/dL (6.4-8.2); TROPONIN I < 0.015 ng/mL (0.000-0.045)
--- NOTE | 2019-07-02 20:30 | NUR ---
PT CURRENTLY RESTING ON [employer]. NO ACUTE DISTRESS NOTED. PT AO X 4. SKIN PWD. RESP EVEN AND UNLABORED. PT AWARE WE ARE WAITING FOR LAB/IMAGING RESULTS. CALL LIGHT WITHIN REACH. WILL CONT TO MONITOR PT.
[2019-07-02] MEDS ORDERED: OMNIPAQUE 350 MG/ML, 100ML BOTTLE ONE (20:59)
[2019-07-02 21:29] VITALS: BP 178/91
--- NOTE | 2019-07-02 21:30 | NUR ---
KEL HEIN AT BEDSIDE FOR EVAL. PT AO X 4. SKIN PWD. RESP EVEN AND UNLABORED. PT ABLE TO SPEAK IN FULL 7-10 WORD SENTENCES W/O DIFFICULTY. NO ACUTE DISTRESS NTOED.
== END 2019-07-02 21:56 | disposition home or self-care (01) ==
LOC: ED 19:41
DX: R07.2 Precordial pain (principal); R07.89 Other chest pain; R13.13 Dysphagia, pharyngeal phase; I10 Essential (primary) hypertension; Z85.3 Personal history of malignant neoplasm of breast
CPT/HCPCS: 36415; 70491; 71045; 80053; 84443; 84484; 85025; 93005; 99285; J1642; Q0163; Q9967

== ENCOUNTER 2019-10-03 16:44 | Emergency (ER) | payer MEDICAID ==
[~2019-10-03] VITALS: Ht 162.6 cm; Wt 58.2 kg
[2019-10-03 16:47] VITALS: BP 136/90
[2019-10-03] MEDS ORDERED: DEXAMETHASONE 4 MG TABLET PO ONE (17:30)
[2019-10-03] MEDS ORDERED: DEXAMETHASONE 4 MG TABLET ONE (17:32)
== END 2019-10-03 18:26 | disposition home or self-care (01) ==
LOC: ED 18:01
DX: J02.0 Streptococcal pharyngitis (principal); I10 Essential (primary) hypertension; F17.200 Nicotine dependence, unspecified, uncomplicated
CPT/HCPCS: 87081; 87880; 99283

== ENCOUNTER 2019-10-14 00:36 | Emergency (ER) | payer MEDICAID ==
[~2019-10-14] VITALS: Ht 162.6 cm; Wt 57.4 kg
[2019-10-14 00:39] VITALS: BP 166/107
[2019-10-14] MEDS ORDERED: BENZONATATE 100 MG CAPSULE ONE (01:25)
[2019-10-14] MEDS ORDERED: BENZONATATE 100 MG CAPSULE PO ONE (01:30)
[2019-10-14] MEDS ORDERED: LORazepam 1MG TABLET ONE (02:17)
[2019-10-14] MEDS ORDERED: LORazepam 1MG TABLET PO ONE (02:30)
== END 2019-10-14 02:43 | disposition home or self-care (01) ==
LOC: ED 01:49
DX: F41.1 Generalized anxiety disorder (principal); Z20.828 Contact with and (suspected) exposure to other viral communicable diseases; R05 Cough; R07.89 Other chest pain; R09.81 Nasal congestion; I10 Essential (primary) hypertension; F17.210 Nicotine dependence, cigarettes, uncomplicated; Z85.3 Personal history of malignant neoplasm of breast
CPT/HCPCS: 36415; 71045; 87635; 93005; 99285; 99406

== ENCOUNTER 2019-10-25 10:50 | Emergency (ER) | payer MEDICAID ==
[~2019-10-25] VITALS: Ht 162.6 cm; Wt 58.9 kg
--- NOTE | 2019-10-25 11:14 | NUR ---
First contact with pt. Pt c/o tightness in chest and SOB starting 40 min ago while she was at work. Pt states she has felt this in the past r/t anxiety. Pt rates tightness at 8/10 currently. Pt states pain is worse with inspiration. Pt speaking in full sentences, resp even and unlabored. Pt placed in gown, positioned for comfort in bed with warm blanket. Continuous heart, oxygen and BP monitors applied, all safety measures observed.
[2019-10-25] MEDS ORDERED: LORazepam 1MG TABLET PO ONE (11:30)
[2019-10-25] MEDS ORDERED: LORazepam 1MG TABLET ONE (11:45)
--- NOTE | 2019-10-25 11:51 | NUR ---
Pt medicated for anxiety per MAR, denies other needs.
[2019-10-25 11:54] LABS: BASOPHILS # (AUTO) 0.02 x10^3/uL (0-0.1); BASOPHILS % (AUTO) 1 % (0-1); EOSINOPHILS # (AUTO) 0.16 x10^3/uL (0-0.4); EOSINOPHILS % (AUTO) 5 % (1-7); LYMPHOCYTES # (AUTO) 1.43 x10^3/uL (1-3.4); LYMPHOCYTES % (AUTO) 46 % (22-44); MD NO; MEAN CORPUSCULAR HEMOGLOBIN 30.8 pg (27.0-34.8); MEAN CORPUSCULAR HGB CONC 32.6 g/dL (32.4-35.8); MEAN CORPUSCULAR VOLUME 94.5 fL (80-100); MEAN PLATELET VOLUME 6.6 fL (7.4-10.4); MONOCYTES # (AUTO) 0.28 x10^3/uL (0.2-0.8); MONOCYTES % (AUTO) 9 % (2-9); NEUTROPHILS # (AUTO) 1.23 x10^3/uL (1.8-6.8); NEUTROPHILS % (AUTO) 40 % (42-75); PLATELET COUNT 220 x10^3/uL (130-400); RED BLOOD COUNT 4.23 x10^6/uL (3.82-5.3); RED CELL DISTRIBUTION WIDTH 13.6 % (9.6-15.2)
[2019-10-25 12:06] LABS: ALBUMIN 3.8 g/dL (3.4-5.0); ANION GAP 5 mmol/L (5-15); CALCIUM 9.2 mg/dL (8.5-10.1); CHLORIDE 112 mmol/L (98-107); CREATININE 0.69 mg/dL (0.55-1.02)
--- NOTE | 2019-10-25 13:22 | NUR ---
Pt states she is feeling much better after medications given.
[2019-10-25 13:23] VITALS: BP 117/68
== END 2019-10-25 13:24 | disposition home or self-care (01) ==
LOC: ED 13:23
DX: R06.00 Dyspnea, unspecified (principal); Z20.828 Contact with and (suspected) exposure to other viral communicable diseases; F41.1 Generalized anxiety disorder; R94.31 Abnormal electrocardiogram [ECG] [EKG]; R07.89 Other chest pain; M79.10 Myalgia, unspecified site; I10 Essential (primary) hypertension; F17.200 Nicotine dependence, unspecified, uncomplicated
CPT/HCPCS: 36415; 71045; 80048; 82040; 85025; 87635; 93005; 99285

== ENCOUNTER → 2019-12-27 | Outpatient (CLI) | payer MEDICAID | END | disposition home or self-care (01) | LOC: CFH 08:01 | PROVIDERS: ATTEND Internal Medicine Hematology & Oncology | DX: Z12.31 Encounter for screening mammogram for malignant neoplasm of breast (principal); C50.812 Malignant neoplasm of overlapping sites of left female breast | CPT/HCPCS: 76641; 77063; 77067 ==

== ENCOUNTER 2019-12-31 11:22 | Emergency (ER) | payer MEDICAID ==
[~2019-12-31] VITALS: Ht 162.6 cm; Wt 60.0 kg
[2019-12-31] MEDS ORDERED: ACETAMINOPHEN 325 MG TABLET PO ONE (12:00)
[2019-12-31] MEDS ORDERED: ACETAMINOPHEN 650 MG SUPP PR ONE (12:00)
[2019-12-31] MEDS ORDERED: ACETAMINOPHEN 325 MG TABLET ONE (12:03)
[2019-12-31 12:21] LABS: RAPID INFLUENZA A Negative (Negative); RAPID INFLUENZA B Negative (Negative)
--- NOTE | 2019-12-31 12:41 | NUR ---
PT aware of needed urine sample. Resting in bed, call light in reach
--- NOTE | 2019-12-31 12:59 | NUR ---
ER KEL MATTA AT BEDSIDE TO DISCUSS POC
[2019-12-31 13:13] VITALS: BP 148/67
--- NOTE | 2019-12-31 13:27 | NUR ---
DISCHARGE INSTRUCTIONS REVIEWED
== END 2019-12-31 13:36 | disposition home or self-care (01) ==
LOC: ED 12:03
DX: J06.9 Acute upper respiratory infection, unspecified (principal); J02.8 Acute pharyngitis due to other specified organisms; B34.9 Viral infection, unspecified; Z20.828 Contact with and (suspected) exposure to other viral communicable diseases; I10 Essential (primary) hypertension; Z85.3 Personal history of malignant neoplasm of breast
CPT/HCPCS: 36415; 87400; 87635; 93005; 99284

== ENCOUNTER 2020-01-11 17:37 | Emergency (ER) | payer MEDICAID ==
[~2020-01-11] VITALS: Ht 162.6 cm; Wt 60.0 kg
[2020-01-11 18:34] LABS: MICROSCOPIC NOT IND
[2020-01-11 20:07] VITALS: BP 137/93
[2020-01-11 20:18] LABS: BASOPHILS % (AUTO) 1 % (0-1); EOSINOPHILS % (AUTO) 2 % (1-7); LYMPHOCYTES % (AUTO) 22 % (22-44); MEAN CORPUSCULAR HEMOGLOBIN 30.6 pg (27.0-34.8); MEAN PLATELET VOLUME 6.5 fL (7.4-10.4); MONOCYTES % (AUTO) 8 % (2-9); NEUTROPHILS % (AUTO) 68 % (42-75); PLATELET COUNT 257 x10^3/uL (130-400); RED BLOOD COUNT 4.52 x10^6/uL (3.82-5.3); RED CELL DISTRIBUTION WIDTH 13.9 % (9.6-15.2)
[2020-01-11 20:20] LABS: MD NO
[2020-01-11 20:25] LABS: ALBUMIN 4.1 g/dL (3.4-5.0); ANION GAP 4 mmol/L (5-15); CHLORIDE 109 mmol/L (98-107); CREATININE 0.64 mg/dL (0.55-1.02)
--- NOTE | 2020-01-11 20:26 | NUR ---
Luther chowdary in ED - 01/11/20 at 2026 by RODRÍGUEZ TASK RN: THIS RN AT BEDSIDE FOR PELVIC. LABS WALKED TO LAB.
--- NOTE | 2020-01-11 20:28 | NUR ---
TASK RN: THIS RN AT BEDSIDE FOR PELVIC. LABS WALKED TO LAB.
[2020-01-11 20:53] LABS: CLUE CELLS NONE SEEN (NONE SEEN)
[2020-01-11 20:54] LABS: WET PREP WBCS FEW (FEW)
[2020-01-11] MEDS ORDERED: FLUCONAZOLE 200 MG TABLET PO ONE (21:30)
[2020-01-11] MEDS ORDERED: FLUCONAZOLE 100 MG TABLET ONE (21:36)
== END 2020-01-11 21:42 | disposition home or self-care (01) ==
LOC: ED 21:10
DX: B37.3 Candidiasis of vulva and vagina (principal); R05 Cough; G43.909 Migraine, unspecified, not intractable, without status migrainosus; F17.210 Nicotine dependence, cigarettes, uncomplicated; Z85.3 Personal history of malignant neoplasm of breast
CPT/HCPCS: 36415; 71045; 80048; 81003; 82040; 85025; 87210; 87491; 87591; 87808; 99284; 99406

== ENCOUNTER 2020-01-23 21:26 | Emergency (ER) | payer MEDICAID ==
[~2020-01-23] VITALS: Ht 162.6 cm; Wt 62.1 kg
[2020-01-23] MEDS ORDERED: DIPHENHYDRAMINE 50 MG/ML, 1ML IVPush ONE (22:00)
[2020-01-23] MEDS ORDERED: KETOROLAC 30 MG/1 ML IVPush ONE (22:00)
[2020-01-23] MEDS ORDERED: KETOROLAC 30 MG/1 ML ONE (22:09)
[2020-01-23] MEDS ORDERED: PROCHLORPERAZINE 5 MG/ML, 2ML ONE (22:09)
[2020-01-23] MEDS ORDERED: DIPHENHYDRAMINE 50 MG/ML, 1ML ONE (22:09)
[2020-01-23] MEDS ORDERED: PROCHLORPERAZINE 5 MG/ML, 2ML IVPush ONE (23:00)
[2020-01-23 23:30] VITALS: BP 132/74
== END 2020-01-23 23:33 | disposition home or self-care (01) ==
LOC: ED 22:01
DX: G43.009 Migraine without aura, not intractable, without status migrainosus (principal); R94.31 Abnormal electrocardiogram [ECG] [EKG]; F17.210 Nicotine dependence, cigarettes, uncomplicated; I10 Essential (primary) hypertension; Z85.3 Personal history of malignant neoplasm of breast
CPT/HCPCS: 93005; 96374; 96375; 99284; J0780; J1200; J1885; 99406

== ENCOUNTER 2020-01-25 11:39 | Emergency (ER) | payer MEDICAID ==
[~2020-01-25] VITALS: Ht 162.6 cm; Wt 61.7 kg
--- NOTE | 2020-01-25 11:50 | NUR ---
"I DONT KNOW WHATS WRONG, I THOUGH IT WAS A MIGRAINE, IM JUST LISANDRO SHORT ON BREATH, IM TIRED AND JUST WANT TO SLEEP" PT ALSO WITH CHILLS, STATES SHE MAY HAVE BEEN EXPOSED TO COVID AT WORK VSS, AFEBRILE, LUNGS CLEAR PROVIER TO BEDSIDE- TO SEND COVID SWAB BUT ALSO MEDICATE FOR ANXIETY/HEADACHE
[2020-01-25] MEDS ORDERED: KETOROLAC 30 MG/1 ML ONE (12:09)
[2020-01-25] MEDS ORDERED: LORazepam 2 MG/ML, 1ML ONE (12:10)
--- NOTE | 2020-01-25 12:18 | NUR ---
MEDICATED PER EMAR FOR HEADACHE RADIOLOGY AT BEDSIDE
[2020-01-25] MEDS ORDERED: LORazepam 2 MG/ML, 1ML IM ONE (12:30)
[2020-01-25] MEDS ORDERED: KETOROLAC 30 MG/1 ML IM ONE (12:30)
[2020-01-25 12:43] VITALS: BP 145/79
--- NOTE | 2020-01-25 12:44 | NUR ---
HEADACHE/NAUSEA IMPROVED TO 04/02. PROVIDER AWARE
== END 2020-01-25 12:52 | disposition home or self-care (01) ==
LOC: ED 12:15
DX: R06.00 Dyspnea, unspecified (principal); Z20.828 Contact with and (suspected) exposure to other viral communicable diseases; R07.89 Other chest pain; R06.02 Shortness of breath; R51.9 Headache, unspecified; I10 Essential (primary) hypertension; F17.210 Nicotine dependence, cigarettes, uncomplicated; Z85.3 Personal history of malignant neoplasm of breast
CPT/HCPCS: 36415; 71045; 87635; 93005; 96372; 99285; J1885; J2060

== ENCOUNTER 2020-02-10 16:04 | Emergency (ER) | payer MEDICAID ==
[~2020-02-10] VITALS: Ht 162.6 cm; Wt 61.1 kg
[2020-02-10 16:15] VITALS: BP 212/110
[2020-02-10 17:02] LABS: BASOPHILS % (AUTO) 1 % (0-1); EOSINOPHILS % (AUTO) 3 % (1-7); LYMPHOCYTES % (AUTO) 34 % (22-44); MEAN CORPUSCULAR HEMOGLOBIN 31.3 pg (27.0-34.8); MEAN CORPUSCULAR HGB CONC 33.8 g/dL (32.4-35.8); MEAN PLATELET VOLUME 6.5 fL (7.4-10.4); MONOCYTES % (AUTO) 9 % (2-9); NEUTROPHILS % (AUTO) 53 % (42-75); PLATELET COUNT 274 x10^3/uL (130-400); RED BLOOD COUNT 4.65 x10^6/uL (3.82-5.3); RED CELL DISTRIBUTION WIDTH 13.9 % (9.6-15.2)
[2020-02-10 17:06] LABS: MD NO
[2020-02-10 17:08] LABS: ALBUMIN 4.3 g/dL (3.4-5.0); ANION GAP 2 mmol/L (5-15); CALCIUM 9.3 mg/dL (8.5-10.1); CHLORIDE 109 mmol/L (98-107); CREATININE 0.77 mg/dL (0.55-1.02)
--- NOTE | 2020-02-10 18:07 | NUR ---
called pt to recheck bp, nil. as
--- NOTE | 2020-02-10 18:15 | NUR ---
HOLTER TECHNICIAN: PT STATES SHE DOES NOT WANT TO WAIT ANY LONGER
== END 2020-02-10 18:17 | disposition left against medical advice (07) ==
LOC: ED 18:10
DX: I10 Essential (primary) hypertension (principal); R42 Dizziness and giddiness
CPT/HCPCS: 36415; 80048; 82040; 85025; 93005; 99284

== ENCOUNTER 2020-02-10 19:57 | Emergency (ER) | payer MEDICAID ==
[~2020-02-10] VITALS: Ht 162.6 cm; Wt 60.0 kg
--- NOTE | 2020-02-10 20:12 | NUR ---
PATIENT SHON LYNN WITH CHIEF C/O HIGH BLOOD PRESSURE. PATIENT WAS IN ED EARLIER AROUND 1600 FOR HIGH BLOOD PRESSURE, GIFFORD AND CHEST TIGHTNESS. PATIENT'S BLOOD PRESSURE WAS READING IN THE 200S SYSTOLICALLY. PATIENT WAS TRIAGED AND LEFT WITHOUT BEING SEEN BECAUSE SHE STATES "I WAS STARTING TO FEEL BETTER AND YOU GUYS LOOKED BUSY." WHEN PATIENT GOT HOME SHE FELT HER BLOOD PRESSURE WAS HIGH AGAIN, AND REPORTS TAKING A FRIENDS 20 MG LISINOPRIL, HER BLOOD PRESSURE HAS BEEN READING 170S-180S SYSTOLICALLY. PATIENT DOES REPORT SOME CHEST TIGHTNESS WHEN SHE WALKS AND NUMBNESS IN HER HANDS EARLIER TODAY, BUT NOW IT'S JUST HER LEFT THUMB THAT IS NUMB. 2 GAUGE IV STARTED EN ROUTE VIA EMS IN LEFT WRIST. NO SIGNS OF ACUTE DISTRESS, CONNECTED TO VITALS MACHINE, CALL LIGHT WITHIN REACH.
--- NOTE | 2020-02-10 20:13 | NUR ---
ERMD AT BEDSIDE FOR EVALUATION.
[2020-02-10 20:39] VITALS: BP 153/86
--- NOTE | 2020-02-10 20:41 | NUR ---
Patient given discharge instructions and prescription and they have confirmed that they understand the instructions. Patient in stable condition ambulatory with steady gait from ED.
== END 2020-02-10 20:56 | disposition home or self-care (01) ==
LOC: ED 20:49
DX: I10 Essential (primary) hypertension (principal); R00.2 Palpitations; R20.2 Paresthesia of skin; Z85.3 Personal history of malignant neoplasm of breast
CPT/HCPCS: 99283

== ENCOUNTER 2020-03-16 09:03 | Emergency (ER) | payer MEDICAID ==
[~2020-03-16] VITALS: Ht 162.6 cm; Wt 62.9 kg
[2020-03-16 09:10] VITALS: BP 164/81
[2020-03-16 09:43] LABS: BASOPHILS % (AUTO) 2 % (0-1); EOSINOPHILS % (AUTO) 3 % (1-7); LYMPHOCYTES % (AUTO) 26 % (22-44); MEAN CORPUSCULAR HEMOGLOBIN 31.1 pg (27.0-34.8); MEAN CORPUSCULAR HGB CONC 33.6 g/dL (32.4-35.8); MEAN PLATELET VOLUME 6.6 fL (7.4-10.4); MONOCYTES % (AUTO) 8 % (2-9); NEUTROPHILS % (AUTO) 61 % (42-75); PLATELET COUNT 266 x10^3/uL (130-400); RED CELL DISTRIBUTION WIDTH 14.5 % (9.6-15.2)
[2020-03-16 09:53] LABS: ALANINE AMINOTRANSFERASE 15 U/L (12-78); ALBUMIN 4.3 g/dL (3.4-5.0); CALCIUM 9.4 mg/dL (8.5-10.1); CREATININE 0.79 mg/dL (0.55-1.02)
[2020-03-16 09:57] LABS: ALKALINE PHOSPHATASE 67 U/L (45-117); BILIRUBIN,TOTAL 0.6 mg/dL (0.2-1.0); TOTAL PROTEIN 7.8 g/dL (6.4-8.2); TROPONIN I < 0.015 ng/mL (0.000-0.045)
[2020-03-16 10:03] LABS: ANION GAP 4 mmol/L (5-15); CHLORIDE 110 mmol/L (98-107)
[2020-03-16 10:04] LABS: MD SCAN
== END 2020-03-16 10:56 | disposition home or self-care (01) ==
LOC: ED 10:09
DX: B34.9 Viral infection, unspecified (principal); Z20.828 Contact with and (suspected) exposure to other viral communicable diseases; R07.89 Other chest pain; I10 Essential (primary) hypertension; F17.200 Nicotine dependence, unspecified, uncomplicated
CPT/HCPCS: 71045; 80053; 84484; 85025; 87635; 93005; 99285

== ENCOUNTER 2020-10-22 05:08 | Emergency (ER) | payer MEDICAID ==
[~2020-10-22] VITALS: Ht 162.6 cm; Wt 63.1 kg
[2020-10-22] MEDS ORDERED: SODIUM CHLORIDE 0.9% 1,000ML IVBOLUS ONE (06:30)
[2020-10-22] MEDS ORDERED: SODIUM CHLORIDE FLUSH 10ML SYR IVF ONE (06:30)
--- NOTE | 2020-10-22 07:01 | NUR ---
REPORT GIVEN TO AIDAN BIANCHI
--- NOTE | 2020-10-22 07:03 | NUR ---
REPORT RECEIVED FROM PERLA. PT HAS IV THAT HAS BEEN STARTED, BLOOD AND URINE COLLECTED AND SENT TO LAB. AT THIS TIME NO OTHER TASK NEEDING TO BE COMPLETED.
[2020-10-22 07:10] LABS: BASOPHILS % (AUTO) 1 % (0-1); EOSINOPHILS % (AUTO) 4 % (1-7); LYMPHOCYTES % (AUTO) 26 % (22-44); MEAN CORPUSCULAR HGB CONC 33.5 g/dL (32.4-35.8); MEAN PLATELET VOLUME 6.8 fL (7.4-10.4); MICROSCOPIC AUTO; MONOCYTES % (AUTO) 9 % (2-9); NEUTROPHILS % (AUTO) 60 % (42-75); PLATELET COUNT 248 x10^3/uL (130-400); RED BLOOD COUNT 4.44 x10^6/uL (3.82-5.3); RED CELL DISTRIBUTION WIDTH 13.5 % (9.6-15.2)
[2020-10-22 07:21] LABS: ALBUMIN 3.7 g/dL (3.4-5.0)
[2020-10-22 07:25] LABS: ALANINE AMINOTRANSFERASE 16 U/L (12-78); ALKALINE PHOSPHATASE 72 U/L (45-117); BILIRUBIN,TOTAL 0.4 mg/dL (0.2-1.0); CREATININE 0.75 mg/dL (0.55-1.02); TOTAL PROTEIN 7.2 g/dL (6.4-8.2)
--- NOTE | 2020-10-22 07:29 | NUR ---
PT PROVIDED WARM BLANKET REQUESTED. KATHY ARSHAD. CALL LIGHT W/IN REACH.
[2020-10-22 07:30] LABS: ANION GAP 5 mmol/L (5-15); CHLORIDE 108 mmol/L (98-107)
--- NOTE | 2020-10-22 08:22 | NUR ---
PT UP TO BATHROOM AND BACK W/O INCIDENT. VSS, NADN, CALL LIGHT W/IN REACH.
[2020-10-22] MEDS ORDERED: CEFTRIAXONE 1,000 MG in DEXTROSE 5% 50 ML IVPB ONE (08:30)
[2020-10-22 09:12] VITALS: BP 115/60
--- NOTE | 2020-10-22 09:13 | NUR ---
Patient given discharge instructions and they have confirmed that they understand the instructions. Patient medicated per DARREN. KATHY, call light w/in reach.
== END 2020-10-22 10:17 | disposition home or self-care (01) ==
LOC: ED 07:09
DX: N30.00 Acute cystitis without hematuria (principal); R19.7 Diarrhea, unspecified; R11.2 Nausea with vomiting, unspecified; I10 Essential (primary) hypertension; F17.200 Nicotine dependence, unspecified, uncomplicated; Z85.3 Personal history of malignant neoplasm of breast
CPT/HCPCS: 36415; 80053; 81001; 85025; 87040; 87077; 87086; 87186; 96361; 96365; 99284; J0696; J7030

== ENCOUNTER 2020-11-09 07:01 | Emergency (ER) | payer MEDICAID ==
[~2020-11-09] VITALS: Ht 162.6 cm; Wt 64.0 kg
--- NOTE | 2020-11-09 07:25 | NUR ---
rib bender note: Pt to room from lobby, ambulatory with steady gait.
[2020-11-09 08:27] LABS: BASOPHILS % (AUTO) 1 % (0-1); EOSINOPHILS % (AUTO) 5 % (1-7); LYMPHOCYTES % (AUTO) 33 % (22-44); MEAN CORPUSCULAR HEMOGLOBIN 30.8 pg (27.0-34.8); MEAN CORPUSCULAR HGB CONC 33.2 g/dL (32.4-35.8); MEAN PLATELET VOLUME 6.9 fL (7.4-10.4); MONOCYTES % (AUTO) 8 % (2-9); NEUTROPHILS % (AUTO) 53 % (42-75); PLATELET COUNT 251 x10^3/uL (130-400); RED BLOOD COUNT 4.35 x10^6/uL (3.82-5.3); RED CELL DISTRIBUTION WIDTH 13.6 % (9.6-15.2)
[2020-11-09 08:38] LABS: ALANINE AMINOTRANSFERASE 13 U/L (12-78); ALBUMIN 3.7 g/dL (3.4-5.0); CALCIUM 8.9 mg/dL (8.5-10.1); CREATININE 0.69 mg/dL (0.55-1.02)
[2020-11-09 08:42] LABS: ALKALINE PHOSPHATASE 61 U/L (45-117); BILIRUBIN,TOTAL 0.5 mg/dL (0.2-1.0); TOTAL PROTEIN 6.6 g/dL (6.4-8.2); TROPONIN I < 0.015 ng/mL (0.000-0.045)
[2020-11-09 08:48] LABS: ANION GAP 4 mmol/L (5-15); CHLORIDE 111 mmol/L (98-107)
[2020-11-09 09:32] VITALS: BP 135/76
== END 2020-11-09 09:36 | disposition home or self-care (01) ==
LOC: ED 08:01
DX: B34.9 Viral infection, unspecified (principal); Z20.822 Contact with and (suspected) exposure to COVID-19; R94.31 Abnormal electrocardiogram [ECG] [EKG]; R05 Cough; I10 Essential (primary) hypertension
CPT/HCPCS: 36415; 71045; 80053; 84484; 85025; 93005; 99285; U0003; U0005

== ENCOUNTER 2020-12-12 11:51 | Emergency (ER) | payer MEDICAID ==
[~2020-12-12] VITALS: Ht 162.6 cm; Wt 61.6 kg
[2020-12-12 12:04] VITALS: BP 159/75
--- NOTE | 2020-12-12 12:08 | NUR ---
light out examiner: EKG done in triage
[2020-12-12 12:33] LABS: BASOPHILS % (AUTO) 1 % (0-1); EOSINOPHILS % (AUTO) 4 % (1-7); LYMPHOCYTES % (AUTO) 26 % (22-44); MEAN CORPUSCULAR HEMOGLOBIN 31.6 pg (27.0-34.8); MEAN CORPUSCULAR HGB CONC 34.3 g/dL (32.4-35.8); MEAN PLATELET VOLUME 6.7 fL (7.4-10.4); MONOCYTES % (AUTO) 7 % (2-9); NEUTROPHILS % (AUTO) 62 % (42-75); PLATELET COUNT 232 x10^3/uL (130-400); RED BLOOD COUNT 4.68 x10^6/uL (3.82-5.3); RED CELL DISTRIBUTION WIDTH 13.8 % (9.6-15.2)
[2020-12-12 12:44] LABS: ANION GAP 1 mmol/L (5-15); CALCIUM 8.8 mg/dL (8.5-10.1); CHLORIDE 109 mmol/L (98-107); CREATININE 0.79 mg/dL (0.55-1.02)
--- NOTE | 2020-12-12 14:56 | NUR ---
NOT IN LOBBY X1.
--- NOTE | 2020-12-12 15:50 | NUR ---
TASK RN: NO ANSWER X2 FROM LOBBY AT THIS TIME
--- NOTE | 2020-12-12 16:06 | NUR ---
TASK RN: NO ANSWER X3 FROM LOBBY AT THIS TIME
== END 2020-12-12 16:17 | disposition left against medical advice (07) ==
LOC: ED 11:58
DX: I10 Essential (primary) hypertension (principal); R51.9 Headache, unspecified
CPT/HCPCS: 36415; 70450; 80048; 82040; 85025; 93005; 99285